=== PATIENT | male | born 1965 | race Caucasian/White ===

== ENCOUNTER → 2018-02-04 09:49 | Outpatient (CLI) | payer BC | END | disposition home or self-care (01) | LOC: D.MRI 09:49 | DX: M25.511 Pain in right shoulder (principal) ==

== ENCOUNTER 2018-04-16 05:50 | Day surgery (SDC) | payer BC ==
--- NOTE | ~2018-04-16 | OP ---
PATIENT NAME: BRIAN MCFARLAND MEDICAL RECORD: [id number] :69 LOCATION:D.OPS ADMISSION DATE: SURGEON: ZECHARIAH CONNOR MD DATE OF OPERATION: 04/16/2018 PREOPERATIVE DIAGNOSIS: Desires screening colonoscopy. POSTOPERATIVE DIAGNOSES: Desires screening colonoscopy. PROCEDURES: Total colonoscopy to cecum. SURGEON: Zechariah Connor MD BIAS MACHINE OPERATOR: None. BLOOD LOSS: Minimal. ANESTHESIA: IV sedation. COMPLICATIONS: None. Reason for the anesthesia staff being present during the procedure includes anxiety regarding the procedure. The risks, possible complications, alternatives to procedure were explained to the patient. He elects to proceed. OPERATIVE COURSE: The patient was conveyed to endoscopy suite electively on 04/16/2018. IV sedation was induced by the anesthesia staff. The patient was placed in the Rodriguez position. A digital rectal examination was performed. The prostate was normal symmetric and without nodules. A colonoscope was inserted through the anus. It was easily advanced to the cecum. The prep was adequate. I slowly withdrew the endoscope. I irrigated and aspirated extensively. The pullback was greater than a 15-minute pullback. A combination of normal imaging and narrow band imaging were utilized. I dragged the folds. A retroflexed view was obtained in the rectum. I then unretroflexed the scope and removed it under direct vision. I will plan for the patient's next colonoscopy to take place in 10 years unless he develops new symptoms such as abdominal pain or rectal bleeding. TRANSINT:[id number] Voice Confirmation ID: [id number] DOCUMENT ID: [id number] 05/17/2018 Edited for bin tripper operator error, dmm. ZECHARIAH CONNOR MD at 1816 CC: CONNOR ZAMARRIPA DO [id number] DICTATION DATE: 04/16/18904 SMOKE INSPECTOR: 04/16/18 1125 [facility] 04/16/18 [place] [id number]
--- NOTE | ~2018-04-16 | HP ---
PATIENT: BRIAN MCFARLAND MEDICAL RECORD: [id number] ACCOUNT: [id number] [facility] 69 ADMISSION DATE: 04/16/18 HISTORY AND PHYSICAL EXAMINATION CHIEF COMPLAINT: Here for screening colonoscopy. HISTORY: The patient has been having no symptoms. He does have IBS, which he treats with fiber. No rectal bleeding. No abdominal pain. No family history of colon cancer. PAST MEDICAL AND SURGICAL HISTORY: Right hand and arm surgery. SOCIAL HISTORY: Nonsmoker. MEDICINES: No medicines. ALLERGIES: CODEINE. REVIEW OF SYSTEMS: Negative for CVA or seizures. Negative for diabetes or thyroid problems. PHYSICAL EXAMINATION: GENERAL: The patient does not appear acutely ill. He does not appear chronically ill. VITAL SIGNS: Reviewed. EARS: External ears appear normal. EYES: Extraocular movements are intact. NECK: Trachea is midline. CHEST: No intercostal retractions. PULMONARY: Nonlabored. No stridor. IMPRESSION: Desires screening colonoscopy. PLAN: Screening colonoscopy. TRANSINT:[id number] Voice Confirmation ID: [id number] DOCUMENT ID: [id number] DELONTE CONNOR MD at 1126 CC: CONNOR ZAMARRIPA DO [id number] DICTATION DATE: 04/16/18 0835 PILING CUTTER: 04/16/[address] [facility] 04/16/18 [place] [id number] [place] [address]
[2018-04-16 06:14] LABS: HEMATOCRIT 45.9 % (42.0-54.0); HEMOGLOBIN 15.6 g/dL (13.5-17.5); MCV 88.3 fL (80.0-100.0); MEAN PLATELET VOLUME 10.4 fL (7.4-10.4); RBC 5.2 10x6/uL (4.20-6.10); RDW 12.7 % (11.5-14.5); WBC 6.3 10x3/uL (4.8-10.8)
[2018-04-16 06:43] VITALS: BMI 37.0
[2018-04-16 06:52] LABS: CALC OSMOLALITY 282 mosm/kg (275-300); CALCIUM 8.7 mg/dL (8.5-10.1); CARBON DIOXIDE 25.2 mmol/L (21.0-32.0); CHLORIDE - SERUM 108 mmol/L (98-107); CREATININE - SERUM 0.9 mg/dL (0.6-1.3); GLUCOSE 102 mg/dL (74-106); POTASSIUM - SERUM 4.4 mmol/L (3.5-5.1); SODIUM 142 mmol/L (136-145); UREA NITROGEN 12 mg/dL (7-18); eGFR NON AFRICAN AMERICAN > 90 mL/min (90-120)
== END 2018-04-16 10:16 ==
LOC: D.OPS 05:50
PROVIDERS: Anesthesiology
DX: Z12.11 Encounter for screening for malignant neoplasm of colon (principal)
CPT/HCPCS: G0121